=== PATIENT | male | born 1990 | race Hispanic/Latino ===

== ENCOUNTER 2016-10-12 17:00 | Emergency (ER) | payer OTHER ==
[2016-10-12 17:22] VITALS: O2SAT 99
[2016-10-12] MEDS ORDERED: Sodium Chloride 0.9% 1,000 ML IV STA (17:37)
[2016-10-12 18:08] LABS: BASO # 0.1 K/uL (0.0-0.2); BASO % 0.8 % (0.0-2.0); EOS # 0.1 K/uL (0.0-0.7); EOS % 1.1 % (0.0-4.0); HEMATOCRIT 48.6 % (35.0-51.0); LYMPH # 2.7 K/uL (1.0-4.3); LYMPH % 32.2 % (20.0-40.0); MEAN CELL VOLUME 86.2 fl (80.0-94.0); MEAN CORPUSCULAR HEMOGLOBIN 29.5 pg (27.0-31.0); MEAN CORPUSCULAR HGB CONC 34.3 g/dL (33.0-37.0); MEAN PLATELET VOLUME 8.8 fl (7.2-11.7); MONO # 0.5 K/uL (0.0-0.8); MONO % 6.3 % (0.0-10.0); NEUT # 5.1 K/uL (1.8-7.0); NEUT % 59.6 % (50.0-75.0); NRBC % 0.1 % (0.0-0.0); RED CELL DISTRIBUTION WIDTH 13.4 % (11.5-14.5); WHITE BLOOD COUNT 8.5 K/uL (4.8-10.8)
[2016-10-12 18:12] LABS: RBC URINE 1 /hpf (0-3); URINE BACTERIA RARE (<OCC); URINE BILIRUBIN NEGATIVE (NEGATIVE); URINE BLOOD NEGATIVE (NEGATIVE); URINE COLOR YELLOW (YELLOW); URINE GLUCOSE (UA) NEG (Normal); URINE KETONE 20 mg/dL (NEGATIVE); URINE LEUKOCYTE ESTERASE NEG Leu/uL (Negative); URINE PROTEIN NEGATIVE (NEGATIVE); URINE UROBILINOGEN 0.2-1.0 mg/dL (0.2-1.0); WBC URINE < 1 /hpf (0-5)
[2016-10-12 18:20] LABS: ALB/GLOB RATIO 1.3 (1.0-2.1); ALKALINE PHOSPHATASE 104 U/L (38-126); ALT/SGPT 263 U/L (21-72); AST/SGOT 109 U/L (17-59); BILIRUBIN,TOTAL 1.8 mg/dl (0.2-1.3); BLOOD UREA NITROGEN 11 mg/dl (9-20); CALCIUM 9.5 mg/dL (8.4-10.2); CARBON DIOXIDE 19 mmol/L (22-30); CHLORIDE 105 mmol/L (98-107); GFR AFRICAN-AMERICAN > 60; GLUCOSE,RANDOM 92 mg/dL (75-110); LIPASE 132 U/L (23-300); POTASSIUM 3.7 MMOL/L (3.6-5.0); SODIUM 143 mmol/l (132-148); TOTAL PROTEIN 8.1 G/DL (6.3-8.2)
--- NOTE | 2016-10-12 18:28 | ED PDOC ---
HPI: Abdomen Time Seen by Provider: 10/12/16 17:31 Chief Complaint (Nursing): Abdominal Pain Chief Complaint (Provider): Abdominal Pain History Per: Patient History/Exam Limitations: no limitations Onset/Duration Of Symptoms: Days (x3) Outside of [place] travel?: No Current Symptoms Are (Timing): Still Present Severity: Moderate Location Of Pain/Discomfort: RUQ, RLQ Quality Of Discomfort: Unable To Describe Associated Symptoms: Nausea (mild), Constipation. denies: Fever, Vomiting, Other (no hematochezia/melena) Exacerbating Factors: Food (present mostly s/p meals) Alleviating Factors: None (prescribed cathartics w/o relief) Additional Complaint(s): Nav Weber is a 26 year old male, with a past medical history inclusive of anxiety and morbid obesity, who presents to the ED on 10/12/16 for the evaluation of moderate, right-sided abdominal pain that he has experienced x3 days. Patient reports that pain is mostly present after the ingestion of food and has been accompanied by some associated mild nausea and constipation. Denies fever, vomiting, hematochezia or melena. Has medicated with cathartics, prescribed to him by his PMD yesterday for this issue, without much improvement ; stating that he did move his bowels once but "not normally". PMD: Juany Luevano Past Medical History Reviewed: Historical Data, Nursing Documentation, Vital Signs Vital Signs: Last Vital Signs Temp 98.3 F 10/12/16 22:54 Pulse 79 10/12/16 22:54 Resp 16 10/12/16 22:54 BP 125/76 10/12/16 22:54 Pulse Ox 99 10/13/16 06:21 - Medical History PMH: Anxiety Other PMH: morbid obesity - Surgical History Surgical History: No Surg Hx - Family History Family History: States: Unknown Family Hx - Social History Current smoker - smoking cessation education provided: No Alcohol: None Drugs: Denies - Home Medications Home Medications: Ambulatory Orders Medication Instructions Recorded Dicyclomine [Bentyl] 20 mg PO Q12 PRN #20 tab 10/12/16 - Allergies Allergies/Adverse Reactions: Allergies Allergy/AdvReac Type Severity Reaction Status Date / Time amoxicillin Allergy RASH Verified 10/12/16 17:18 Review of Systems ROS Statement: Except As Marked, All Systems Reviewed And Found Negative Constitutional: Negative for: Fever Gastrointestinal: Positive for: Nausea (mild), Abdominal Pain (right-sided), Constipation. Negative for: Vomiting, Melena, Hematochezia Physical Exam - Reviewed Nursing Documentation Reviewed: Yes Vital Signs Reviewed: Yes - Physical Exam Appears: Positive for: Non-toxic, No Acute Distress Head Exam: Positive for: ATRAUMATIC, NORMOCEPHALIC Skin: Positive for: Normal Color, Warm, Dry Cardiovascular/Chest: Positive for: Regular Rate, Rhythm. Negative for: Murmur Respiratory: Positive for: Normal Breath Sounds. Negative for: Respiratory Distress Gastrointestinal/Abdominal: Positive for: Soft, Tenderness (RUQ), Other ( morbidly obese) Back: Positive for: Normal Inspection Extremity: Positive for: Normal ROM. Negative for: Swelling Neurologic/Psych: Positive for: Alert, Oriented - Laboratory Results Result Diagrams: 10/12/16 17:50 10/12/16 17:50 - ECG O2 Sat by Pulse Oximetry: 99 (RA) Pulse Ox Interpretation: Normal Medical Decision Making Medical Decision Makin:31 Initial Impression: abdominal pain Medications have been reviewed (propranolol, dulcolax). Given body habitus will get CT to evaluate biliary tree. Less likely appendicitis but will also rule out. Initial Plan: * CT A/P w/IV contrast * Labs * Lipase * Urinalysis * IV NS 1000ml at 1000mls/hr * Pepcid 20mg IV * Zofran 4mg IV * Reevaluation 19:00 Patient will be endorsed over to Jose Francisco Castaneda MD, pending remainder of ED workup, reevaluation and final disposition. Scribe Attestation: Documented by Cynthia Osorio, acting as a scribe for Jesus Jessica III, DO. Provider Scribe Attestation: All medical record entries made by the Scribe were at my direction and personally dictated by me. I have reviewed the chart and agree that the record accurately reflects my personal performance of the history, physical exam, medical decision making, and the department course for this patient. I have also personally directed, reviewed, and agree with the discharge instructions and disposition. Disposition - Clinical Impression Clinical Impression: Abdominal pain - Patient ED Disposition Is Patient to be Admitted: Transfer of Care - Disposition Referrals: Jim Duarn MD [Staff Provider] - Disposition: Transfer of Care Disposition Time: 19:00 Condition: STABLE Additional Instructions: Please follow up with your doctor in 1-2 days for possible GI referral Prescriptions: Dicyclomine [Bentyl] 20 mg PO Q12 PRN #20 tab PRN Reason: abdominal pain Instructions: Abdominal Pain (ED)
[2016-10-12] MEDS ORDERED: Iohexol 300 100 ML IJ ONE (18:32)
[2016-10-12] MEDS ORDERED: Sodium Chloride 0.9% 50 ML IV ONE (18:32)
--- NOTE | 2016-10-12 19:12 | CT ---
EXAM: CT Abdomen and Pelvis With Intravenous Contrast CLINICAL HISTORY: 26 years old, male; Pain; Abdominal pain; Localized; Right; Additional info: Ruq and rlq pain, constipation TECHNIQUE: Axial computed tomography images of the abdomen and pelvis with intravenous contrast. This CT exam was performed using one or more of the following dose reduction techniques: automated exposure control, adjustment of the mA and/or kV according to patient size, and/or use of iterative reconstruction technique. Coronal and sagittal reformatted images were created and reviewed. CONTRAST: 100 mL of [id number] administered intravenously. EXAM DATE/TIME: 10/12/2016 5:38 PM COMPARISON: There are no prior studies for comparison. FINDINGS: Lower thorax: Heart size is normal. Lung bases are clear. There is a small hiatal hernia. ABDOMEN: Liver: There is fatty infiltration of the liver. Gallbladder and bile ducts: unremarkable Pancreas: There is mild fatty infiltration of pancreas. Spleen: The spleen is enlarged. Adrenals: unremarkable Kidneys and ureters: unremarkable Stomach and bowel: Stomach is almost completely empty. Rotation is normal. There is no obstruction. Terminal ileum is unremarkable. Appendix is normal in size. There is minimal radiopaque material in the appendix.Colon is incompletely distended which limits evaluation. There is scattered diverticulosis Appendix: See stomach and bowel PELVIS: Bladder: unremarkable Reproductive: Seminal vesicles and prostate are unremarkable. ABDOMEN and PELVIS: Intraperitoneal space: There is no free air or free fluid. Bones/joints: There are no acute osseous abnormalities Soft tissues: There is a fat containing left inguinal hernia. There is a small fat-containing umbilical hernia. Vasculature: Vascular structures are unremarkable. Lymph nodes: There is no pathologic adenopathy. IMPRESSION: Fatty liver; mild splenomegaly; no acute solid visceral or bowel abnormality, no CT findings of appendicitis or diverticulitis
--- NOTE | 2016-10-12 19:37 | ED PDOC ---
- Laboratory Results Result Diagrams: 10/12/16 17:50 10/12/16 17:50 - ECG O2 Sat by Pulse Oximetry: 99 (RA) Pulse Ox Interpretation: Normal - CT Scan/US CT A/P w/IV Contrast Other Rad Studies (CT/US): Read By Radiologist, Radiology Report Reviewed Other Rad Interpretation: see [facility] US Abdomen, Complete Other Rad Studies (CT/US): Read By Radiologist, Radiology Report Reviewed Other Rad Interpretation: see [facility] Medical Decision Making Medical Decision Makin:00 Patient endorsed over to me by Jesus Jessica III DO, pending CT A/P, labs, reevaluation and final disposition. 19:12 CT A/P report reviewed: FINDINGS: Lower thorax: Heart size is normal. Lung bases are clear. There is a small hiatal hernia. ABDOMEN: Liver: There is fatty infiltration of the liver. Gallbladder and bile ducts: unremarkable Pancreas: There is mild fatty infiltration of pancreas. Spleen: The spleen is enlarged. Adrenals: unremarkable Kidneys and ureters: unremarkable Stomach and bowel: Stomach is almost completely empty. Rotation is normal. There is no obstruction. Terminal ileum is unremarkable. Appendix is normal in size. There is minimal radiopaque material in the appendix.Colon is incompletely distended which limits evaluation. There is scattered diverticulosis Appendix: See stomach and bowel PELVIS: Bladder: unremarkable Reproductive: Seminal vesicles and prostate are unremarkable. ABDOMEN and PELVIS: Intraperitoneal space: There is no free air or free fluid. Bones/joints: There are no acute osseous abnormalities Soft tissues: There is a fat containing left inguinal hernia. There is a small fat-containing umbilical hernia. Vasculature: Vascular structures are unremarkable. Lymph nodes: There is no pathologic adenopathy. IMPRESSION: Fatty liver; mild splenomegaly; no acute solid visceral or bowel abnormality, no CT findings of appendicitis or diverticulitis 20:13 Labs reviewed, notable mild elevation in liver function. Will order US Abdomen Complete to exclude gallbladder issues. 22:09 US report reviewed: FINDINGS: Limitations: Large amount of bowel gas limits evaluation of the upper abdomen. Liver: There is increased echogenicity to the liver. Gallbladder: Bowel gas and large habitus limit visualization of the gallbladder. Gallbladder is partially distended. There are no large shadowing stones. There is no wall thickening. Common bile duct: Common bile duct measures 4.4 mm in diameter Pancreas: Pancreas is obscured by bowel gas. Right kidney: Right kidney is unremarkable. IMPRESSION: Limited by body habitus and large amount of bowel gas in the colon fatty liver; no gallstones or ductal dilatation Patient was not tender over the gallbladder 22:27 US and lab results discussed with patient, who is already aware of the latter from previous testing. Patient states that he plans to follow up with his PMD for this issue, will also provide GI referral. Patient is medically stable and has been asymptomatic since his arrival in the ED. No further treatment required in the ED at this time, will discharge home with Rx for Bentyl. Counseling provided regarding diagnosis, Rx and importance of followup. All questions answered. There is agreement to discharge plan, return for acute worsening of symptoms. Clinicial Impression: abdominal pain Scribe Attestation: Documented by Cnythia Osorio, acting as a scribe for Jose Francisco Castaneda MD. Provider Scribe Attestation: All medical record entries made by the Scribe were at my direction and personally dictated by me. I have reviewed the chart and agree that the record accurately reflects my personal performance of the history, physical exam, medical decision making, and the department course for this patient. I have also personally directed, reviewed, and agree with the discharge instructions and disposition. Disposition - Clinical Impression Clinical Impression: Abdominal pain - POA Present On Arrival: None - Disposition Referrals: Jim Duran MD [Staff Provider] - Disposition: Routine/Home Disposition Time: 22:27 Condition: STABLE Additional Instructions: Please follow up with your doctor in 1-2 days for possible GI referral Prescriptions: Dicyclomine [Bentyl] 20 mg PO Q12 PRN #20 tab PRN Reason: abdominal pain Instructions: Abdominal Pain (ED)
--- NOTE | 2016-10-12 22:09 | US ---
EXAM: US Abdomen Limited, Right Upper Quadrant CLINICAL HISTORY: 26 years old, male; Pain; Abdominal pain; Epigastric; Additional info: Ruq pain TECHNIQUE: Real-time ultrasound of the right upper quadrant with image documentation. EXAM DATE/TIME: 10/12/2016 8:13 PM COMPARISON: CT - ABD PELVIS IV CONTRA 10/12/2016 6:46:16 PM FINDINGS: Limitations: Large amount of bowel gas limits evaluation of the upper abdomen. Liver: There is increased echogenicity to the liver. Gallbladder: Bowel gas and large habitus limit visualization of the gallbladder. Gallbladder is partially distended. There are no large shadowing stones. There is no wall thickening. Common bile duct: Common bile duct measures 4.4 mm in diameter Pancreas: Pancreas is obscured by bowel gas. Right kidney: Right kidney is unremarkable. IMPRESSION: Limited by body habitus and large amount of bowel gas in the colon fatty liver; no gallstones or ductal dilatation Patient was not tender over the gallbladder
[2016-10-12 22:55] VITALS: BP 125/76; PULSE 79; RESP 16; TEMP 98.3
== END 2016-10-12 22:55 | disposition home or self-care (01) ==
LOC: H.ER 17:00
DX: R10.9 Unspecified abdominal pain (principal); E66.01 Morbid (severe) obesity due to excess calories

== ENCOUNTER 2017-02-17 20:59 | Emergency (ER) | payer MEDICAID, OTHER ==
[2017-02-17 21:10] VITALS: RESP 16; O2SAT 98
[2017-02-17] MEDS ORDERED: Sodium Chloride 0.9% 1,000 ML IV STA (21:39)
[2017-02-17 22:11] LABS: BASO # 0.1 K/uL (0.0-0.2); BASO % 0.8 % (0.0-2.0); EOS # 0.1 K/uL (0.0-0.7); EOS % 1.4 % (0.0-4.0); HEMOGLOBIN 16.1 g/dL (12.0-18.0); MEAN CELL VOLUME 85.6 fl (80.0-94.0); MEAN CORPUSCULAR HEMOGLOBIN 29.8 pg (27.0-31.0); MEAN CORPUSCULAR HGB CONC 34.8 g/dL (33.0-37.0); MONO # 0.4 K/uL (0.0-0.8); MONO % 5.6 % (0.0-10.0); NEUT # 4.7 K/uL (1.8-7.0); NEUT % 65.2 % (50.0-75.0); NRBC % 0.1 % (0.0-0.0); RBC 5.4 Mil/uL (4.40-5.90); RED CELL DISTRIBUTION WIDTH 13.9 % (11.5-14.5); WHITE BLOOD COUNT 7.3 K/uL (4.8-10.8)
[2017-02-17 22:21] LABS: ALB/GLOB RATIO 1.6 (1.0-2.1); ALBUMIN 4.3 g/dL (3.5-5.0); ALT/SGPT 137 U/L (21-72); AST/SGOT 67 U/L (17-59); BLOOD UREA NITROGEN 10 mg/dl (9-20); CALCIUM 9.2 mg/dL (8.4-10.2); GFR AFRICAN-AMERICAN > 60; GFR NON-AFRICAN AMERICAN > 60
--- NOTE | 2017-02-17 22:45 | ED PDOC ---
HPI: Abdomen Time Seen by Provider: 02/17/17 21:16 Chief Complaint (Nursing): Abdominal Pain Chief Complaint (Provider): Right sided abdominal pain History Per: Patient History/Exam Limitations: no limitations Onset/Duration Of Symptoms: Hrs (3) Additional Complaint(s): Patient is a 26 year old male with a past medical history of anxiety presenting to the emergency department for right sided abdominal pain ongoing for three hours with associated vomiting x1. Denies constipation, diarrhea, dysuria, fever , or a history of surgeries. PCP: Dr. Endy Anne. Past Medical History Reviewed: Historical Data, Nursing Documentation, Vital Signs Vital Signs: Last Vital Signs Temp 98.3 F 02/18/17 00:35 Pulse 89 02/18/17 00:35 Resp 16 02/18/17 00:35 BP 139/73 02/18/17 00:35 Pulse Ox 98 02/18/17 00:35 - Medical History PMH: Anxiety - Surgical History Surgical History: No Surg Hx - Family History Family History: States: Unknown Family Hx - Social History Current smoker - smoking cessation education provided: Yes (less than 10 cigarettes/day) Alcohol: Social - Home Medications Home Medications: Ambulatory Orders Medication Instructions Recorded Dicyclomine [Bentyl] 20 mg PO Q12 PRN #20 tab 10/12/16 Naproxen [Naprosyn] 500 mg PO BID PRN #15 tablet 02/17/17 Nitrofurantoin Macrocrystals 100 mg PO BID #13 cap 02/17/17 [Macrobid] - Allergies Allergies/Adverse Reactions: Allergies Allergy/AdvReac Type Severity Reaction Status Date / Time amoxicillin Allergy RASH Verified 10/12/16 17:18 Review of Systems ROS Statement: Except As Marked, All Systems Reviewed And Found Negative Constitutional: Negative for: Fever Gastrointestinal: Positive for: Vomiting (x1), Abdominal Pain (right sided). Negative for: Diarrhea, Constipation Genitourinary Male: Negative for: Dysuria Psych: Positive for: Anxiety Physical Exam - Reviewed Nursing Documentation Reviewed: Yes Vital Signs Reviewed: Yes - Physical Exam Appears: Positive for: Non-toxic (morbidly obese) Head Exam: Positive for: ATRAUMATIC, NORMAL INSPECTION, NORMOCEPHALIC Skin: Positive for: Normal Color, Warm, Dry Eye Exam: Positive for: EOMI, Normal appearance, PERRL ENT: Positive for: Normal ENT Inspection Neck: Positive for: Normal, Supple Cardiovascular/Chest: Positive for: Regular Rate, Rhythm. Negative for: Murmur Respiratory: Positive for: Normal Breath Sounds. Negative for: Accessory Muscle Use, Respiratory Distress Gastrointestinal/Abdominal: Positive for: Tenderness (right upper lateral abdominal tenderness). Negative for: Normal Exam, Guarding, Rebound Back: Positive for: Normal Inspection Extremity: Positive for: Normal ROM. Negative for: Pedal Edema Neurologic/Psych: Positive for: Alert, Oriented - Laboratory Results Result Diagrams: 02/17/17 22:00 02/17/17 22:00 - ECG O2 Sat by Pulse Oximetry: 98 (RA) Pulse Ox Interpretation: Normal Medical Decision Making Medical Decision Making: Time: 21:39 Initial Impression: Kidney stones, musculoskeletal pain Initial Plan: -Abdominal and pelvic CT Scan -Urine Dipstick -Morphine 2 mg IV -Normal Saline, 1 L/hr -Zofran 4 mg IV -Urinalysis -Reevaluation Accession No. 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 no. Patient Name: SWETA CUELLAR Pt. Address: [address] [place] [address] Rec #: [id number] [place] [address]: Kendall DIANE,Theodora Poon Pt HOME Order Location: [facility] : 1990 Male Age: 26 Order #: [id number] Reason for exam: R flank pain CT Scan ABD PELVIS W/O PO OR IV CONT Exam Date: 02/17/17 This imaging exam was performed at [facility] EXAM: CT Abdomen and Pelvis Without Intravenous Contrast CLINICAL HISTORY: 26 years old, male; Pain; Abdominal pain; Flank; Right; Additional info: R flank pain TECHNIQUE: Axial computed tomography images of the abdomen and pelvis without intravenous contrast. All CT scans at this facility use one or more dose reduction techniques, viz.: automated exposure control; ma/kV adjustment per patient size (including targeted exams where dose is matched to indication; i.e. head); or iterative reconstruction technique. Coronal and sagittal reformatted images were created and reviewed. COMPARISON: CT - ABD PELVIS IV CONTRAST ONLY 10/12/2016 6:46:16 PM FINDINGS: Lower thorax: The bilateral lung bases are clear. ABDOMEN: Liver: Fatty infiltration of the liver is identified. Gallbladder and bile ducts: The gallbladder is decompressed, without calcified stones. No intra-extrahepatic biliary ductal dilation. Pancreas: Limited evaluation secondary to the lack of intravenous contrast. Spleen: No acute findings. Adrenals: No acute findings. Kidneys and ureters: No obstructing stones. No hydronephrosis. PELVIS: Bladder: No acute findings. Reproductive: No acute findings. Appendix: The appendix is of normal caliber (series 2, image 74). ABDOMEN and PELVIS: Stomach and bowel: No acute findings. Peritoneum: No acute findings. Lymph nodes: Limited evaluation without intravenous contrast. Vasculature: No aortic aneurysm. Bones: No acute fracture. IMPRESSION: No obstructive uropathy. Normal appendix. Fatty infiltration of the liver. Dictated By: Bailey Yost MD Dictated Date/Time: 02/17/172348 Signed By: Bailey Yost MD Date Signed: 2348 Transcribed By: CHRIS Transcribe Date/Time : 02/17/172348 Scribe Attestation: Documented by Linsey Bartholomew, acting as a scribe for Theodora Argueta MD. Provider Scribe Attestation: All medical record entries made by the Scribe were at my direction and personally dictated by me. I have reviewed the chart and agree that the record accurately reflects my personal performance of the history, physical exam, medical decision making, and the department course for this patient. I have also personally directed, reviewed, and agree with the discharge instructions and disposition. Disposition - Clinical Impression Clinical Impression: UTI (urinary tract infection) - Disposition Referrals: [facility] [Outside] Endy Anne [Family Provider] - Disposition: Routine/Home Disposition Time: 23:53 Condition: STABLE Prescriptions: Naproxen [Naprosyn] 500 mg PO BID PRN #15 tablet PRN Reason: Pain, Moderate (4-7) Nitrofurantoin Macrocrystals [Macrobid] 100 mg PO BID #13 cap Instructions: Urinary Tract Infection in Men (ED) Forms: [facility] (Greek)
[2017-02-17 22:59] LABS: SQUAMOUS EPITHIAL < 1 /hpf (0-5); URINE BACTERIA FEW (<OCC); URINE BILIRUBIN NEGATIVE (NEGATIVE); URINE BLOOD NEGATIVE (NEGATIVE); URINE CLARITY CLOUDY (Clear); URINE COLOR AMBER (YELLOW); URINE GLUCOSE (UA) NEG (Normal); URINE LEUKOCYTE ESTERASE NEG Leu/uL (Negative); URINE NITRATE NEGATIVE (NEGATIVE); URINE PROTEIN 30 mg/dL (NEGATIVE); URINE UROBILINOGEN 0.2-1.0 mg/dL (0.2-1.0)
--- NOTE | 2017-02-17 23:50 | CT ---
EXAM: CT Abdomen and Pelvis Without Intravenous Contrast CLINICAL HISTORY: 26 years old, male; Pain; Abdominal pain; Flank; Right; Additional info: R flank pain TECHNIQUE: Axial computed tomography images of the abdomen and pelvis without intravenous contrast. All CT scans at this facility use one or more dose reduction techniques, viz.: automated exposure control; ma/kV adjustment per patient size (including targeted exams where dose is matched to indication; i.e. head); or iterative reconstruction technique. Coronal and sagittal reformatted images were created and reviewed. COMPARISON: CT - ABD PELVIS IV CONTRAST ONLY 10/12/2016 6:46:16 PM FINDINGS: Lower thorax: The bilateral lung bases are clear. ABDOMEN: Liver: Fatty infiltration of the liver is identified. Gallbladder and bile ducts: The gallbladder is decompressed, without calcified stones. No intra-extrahepatic biliary ductal dilation. Pancreas: Limited evaluation secondary to the lack of intravenous contrast. Spleen: No acute findings. Adrenals: No acute findings. Kidneys and ureters: No obstructing stones. No hydronephrosis. PELVIS: Bladder: No acute findings. Reproductive: No acute findings. Appendix: The appendix is of normal caliber (series 2, image 74). ABDOMEN and PELVIS: Stomach and bowel: No acute findings. Peritoneum: No acute findings. Lymph nodes: Limited evaluation without intravenous contrast. Vasculature: No aortic aneurysm. Bones: No acute fracture. IMPRESSION: No obstructive uropathy. Normal appendix. Fatty infiltration of the liver.
[2017-02-18 00:48] VITALS: BP 139/73; PULSE 89; TEMP 98.3
== END 2017-02-18 00:35 | disposition home or self-care (01) ==
LOC: H.ER 20:59
DX: N39.0 Urinary tract infection, site not specified (principal); K76.0 Fatty (change of) liver, not elsewhere classified; F41.9 Anxiety disorder, unspecified; F17.210 Nicotine dependence, cigarettes, uncomplicated

== ENCOUNTER 2017-11-07 18:53 | Emergency (ER) | payer MEDICAID ==
[2017-11-07 19:06] VITALS: O2SAT 100
[2017-11-07] MEDS ORDERED: Sodium Chloride 0.9% 1,000 ML IV STA (19:54)
--- NOTE | 2017-11-07 20:13 | ED PDOC ---
HPI: Abdomen Time Seen by Provider: 11/07/17 19:00 Chief Complaint (Nursing): Abdominal Pain Chief Complaint (Provider): Abdominal Pain History Per: Patient History/Exam Limitations: no limitations Onset/Duration Of Symptoms: Mins (x30) Current Symptoms Are (Timing): Still Present Context: Food Location Of Pain/Discomfort: Epigastric, Suprapubic Associated Symptoms: Vomiting. denies: Diarrhea, Constipation Additional Complaint(s): 27 year old male presents to the emergency department with an acute onset of upper and lower abdominal pain status post eating raw fish half an hour prior to arrival. He had 1 episode of vomiting but denies any diarrhea or constipation. PMD: Endy Anne MD Past Medical History Reviewed: Historical Data, Nursing Documentation, Vital Signs Vital Signs: Last Vital Signs Temp 98.4 F 11/07/17 21:34 Pulse 74 11/08/17 01:23 Resp 18 11/08/17 01:23 BP 131/85 11/08/17 01:23 Pulse Ox 100 11/08/17 01:32 - Medical History PMH: Anxiety - Family History Family History: States: Unknown Family Hx - Home Medications Home Medications: Ambulatory Orders Medication Instructions Recorded Dicyclomine [Bentyl] 20 mg PO Q12 PRN #20 tab 10/12/16 Naproxen [Naprosyn] 500 mg PO BID PRN #15 tablet 02/17/17 Nitrofurantoin Macrocrystals 100 mg PO BID #13 cap 02/17/17 [Macrobid] Dicyclomine [Dicyclomine HCl] 10 mg PO TID PRN #6 cap 11/08/17 Ondansetron [Zofran] 4 mg PO Q6H PRN #4 tab 11/08/17 - Allergies Allergies/Adverse Reactions: Allergies Allergy/AdvReac Type Severity Reaction Status Date / Time amoxicillin Allergy RASH Verified 11/07/17 19:40 Review of Systems ROS Statement: Except As Marked, All Systems Reviewed And Found Negative Gastrointestinal: Positive for: Vomiting, Abdominal Pain (upper and lower). Negative for: Diarrhea, Constipation Physical Exam - Reviewed Nursing Documentation Reviewed: Yes Vital Signs Reviewed: Yes - Physical Exam Appears: Positive for: No Acute Distress Head Exam: Positive for: ATRAUMATIC, NORMAL INSPECTION, NORMOCEPHALIC Skin: Positive for: Normal Color Eye Exam: Positive for: Normal appearance ENT: Positive for: Normal ENT Inspection Neck: Positive for: Normal Cardiovascular/Chest: Positive for: Regular Rate, Rhythm Respiratory: Positive for: Normal Breath Sounds. Negative for: Wheezing, Respiratory Distress Gastrointestinal/Abdominal: Positive for: Soft, Tenderness (suprapubic and epigastric mildly), Other (obese). Negative for: Mass, Guarding, Rebound Back: Positive for: Normal Inspection Extremity: Positive for: Normal ROM (upper/lower) Neurologic/Psych: Positive for: Alert, Oriented. Negative for: Motor/Sensory Deficits - Laboratory Results Result Diagrams: 11/07/17 19:51 11/07/17 19:51 - ECG O2 Sat by Pulse Oximetry: 100 (RA) Pulse Ox Interpretation: Normal Medical Decision Making Medical Decision Making: Initial Impression: Abdominal pain R/O UTI and gastroenteritis Initial Plan: * CMP * CBC * NS 1,000ml IV per 999mls/hr * Pepcid 20mg IVP * Toradol 30mg IV * Zofran 4mg PO * Urine C&S * UA Time: 2143 --Patient continues to report abdominal pain. --CT ABD/pelvis with IV and PO contrast, Bentyl 10mg and Omnipaque 50ml ordered. 0050 CT FINDINGS: Lung bases: No acute findings. ABDOMEN: Liver: Fatty infiltration. Gallbladder and bile ducts: No calcified stones. No ductal dilation. Pancreas: No ductal dilation. No mass. Spleen: Mildly enlarged. Adrenals: No mass. Kidneys and ureters: No hydronephrosis. Stomach and bowel: Few mildly thickened loops of small bowel within midabdomen. Mild stranding within associated mesentery. No obstruction. PELVIS: Appendix: Normal caliber. No inflammation. Bladder: Collapsed bladder, limiting evaluation. Reproductive: Unremarkable as visualized. ABDOMEN and PELVIS: Intraperitoneal space: Small free fluid within pelvis. No free air. Bones/joints: No acute fracture. Soft tissues: Small LEFT inguinal hernia containing fat and fluid. Tiny umbilical hernia containing fat. Vasculature: Unremarkable. No aneurysm. Lymph nodes: No pathologically enlarged lymph nodes. IMPRESSION: 1. Enteritis, nonspecific. Consider inflammatory, infectious or ischemic etiologies. 2. Incidental/non-acute findings are described above. Patient is PO tolerant and notes improvement in symptoms. Agrees to follow up with PCP in 1-2 days. Patient is stable for discharge home with a prescription for Zofran. Scribe Attestation: Documented by Lucie Wetzel and Jacinta Narvaez, acting as a scribe for Jorge Méndez MD. Provider Scribe Attestation: All medical record entries made by the Scribe were at my direction and personally dictated by me. I have reviewed the chart and agree that the record accurately reflects my personal performance of the history, physical exam, medical decision making, and the department course for this patient. I have also personally directed, reviewed, and agree with the discharge instructions and disposition. Disposition - Clinical Impression Clinical Impression: Abdominal discomfort, Enteritis - Patient ED Disposition Is Patient to be Admitted: No Counseled Patient/Family Regarding: Studies Performed, Diagnosis, Need For Followup - Disposition Disposition: Routine/Home Disposition Time: 23:05 Condition: IMPROVED Additional Instructions: follow up with your primary doctor in 1-2 days return to the ED with any worsening or concerning symptoms Prescriptions: Dicyclomine [Dicyclomine HCl] 10 mg PO TID PRN #6 cap PRN Reason: Pain, Moderate (4-7) Ondansetron [Zofran] 4 mg PO Q6H PRN #4 tab PRN Reason: Nausea/Vomiting Instructions: Viral Gastroenteritis, Adult (DC) Forms: [employer] ([employer])
[2017-11-07 20:16] LABS: URINE BACTERIA RARE (<OCC); URINE BILIRUBIN NEGATIVE (NEGATIVE); URINE BLOOD NEGATIVE (NEGATIVE); URINE CLARITY SLIGHTY-CLOUDY (Clear); URINE COLOR YELLOW (YELLOW); URINE GLUCOSE (UA) NEG (Normal); URINE LEUKOCYTE ESTERASE NEG Leu/uL (Negative); URINE PROTEIN 30 mg/dL (NEGATIVE); URINE UROBILINOGEN 0.2-1.0 mg/dL (0.2-1.0)
[2017-11-07 20:21] LABS: BASO # 0.1 K/uL (0.0-0.2); BASO % 1.2 % (0.0-2.0); EOS % 0.6 % (0.0-4.0); HEMOGLOBIN 17.3 g/dL (12.0-18.0); LYMPH # 1.7 K/uL (1.0-4.3); LYMPH % 25.1 % (20.0-40.0); MEAN CELL VOLUME 86.2 fl (80.0-94.0); MEAN CORPUSCULAR HEMOGLOBIN 29.9 pg (27.0-31.0); MEAN CORPUSCULAR HGB CONC 34.7 g/dL (33.0-37.0); MONO # 0.3 K/uL (0.0-0.8); MONO % 4.8 % (0.0-10.0); NEUT # 4.6 K/uL (1.8-7.0); NEUT % 68.3 % (50.0-75.0); NRBC % 0.1 % (0.0-0.0); RBC 5.78 Mil/uL (4.40-5.90); RED CELL DISTRIBUTION WIDTH 13.8 % (11.5-14.5); WHITE BLOOD COUNT 6.8 K/uL (4.8-10.8)
[2017-11-07 20:32] LABS: BLOOD UREA NITROGEN 13 mg/dl (9-20); GFR AFRICAN-AMERICAN > 60; GFR NON-AFRICAN AMERICAN > 60
[2017-11-07 20:33] LABS: ALB/GLOB RATIO 1.2 (1.0-2.1); ALBUMIN 4.1 g/dL (3.5-5.0); ALT/SGPT 151 U/L (21-72); AST/SGOT 78 U/L (17-59); CALCIUM 9.3 mg/dL (8.4-10.2)
[2017-11-07 21:34] VITALS: TEMP 98.4
[2017-11-07] MEDS ORDERED: Iohexol 240 (50 ml) PO ONE (21:44)
[2017-11-07] MEDS ORDERED: Iohexol 300 100 ML IJ ONE (23:52)
[2017-11-07] MEDS ORDERED: Sodium Chloride 0.9% 100 ML ONE (23:52)
--- NOTE | 2017-11-08 00:51 | CT ---
EXAM: CT Abdomen and Pelvis With Intravenous Contrast CLINICAL HISTORY: 27 years old, male; Pain; Abdominal pain; Generalized; Additional info: Abd pain TECHNIQUE: Axial computed tomography images of the abdomen and pelvis with intravenous contrast. All CT scans at this facility use one or more dose reduction techniques, viz.: automated exposure control; ma/kV adjustment per patient size (including targeted exams where dose is matched to indication; i.e. head); or iterative reconstruction technique. Coronal and sagittal reformatted images were created and reviewed. CONTRAST: 95 mL of [id number] administered intravenously. COMPARISON: CT - ABD PELVIS W/O PO OR IV CONT 2017-02-17 22:55 FINDINGS: Lung bases: No acute findings. ABDOMEN: Liver: Fatty infiltration. Gallbladder and bile ducts: No calcified stones. No ductal dilation. Pancreas: No ductal dilation. No mass. Spleen: Mildly enlarged. Adrenals: No mass. Kidneys and ureters: No hydronephrosis. Stomach and bowel: Few mildly thickened loops of small bowel within midabdomen. Mild stranding within associated mesentery. No obstruction. PELVIS: Appendix: Normal caliber. No inflammation. Bladder: Collapsed bladder, limiting evaluation. Reproductive: Unremarkable as visualized. ABDOMEN and PELVIS: Intraperitoneal space: Small free fluid within pelvis. No free air. Bones/joints: No acute fracture. Soft tissues: Small LEFT inguinal hernia containing fat and fluid. Tiny umbilical hernia containing fat. Vasculature: Unremarkable. No aneurysm. Lymph nodes: No pathologically enlarged lymph nodes. IMPRESSION: 1. Enteritis, nonspecific. Consider inflammatory, infectious or ischemic etiologies. 2. Incidental/non-acute findings are described above.
[2017-11-08 01:41] VITALS: BP 131/85; PULSE 74; RESP 18
== END 2017-11-08 01:35 | disposition home or self-care (01) ==
LOC: H.ER 18:53
DX: R10.13 Epigastric pain (principal); K52.9 Noninfective gastroenteritis and colitis, unspecified
CPT/HCPCS: 74177; 80053; 81003; 85025; 87086; 96361; 96374; 96375; 99283; J1885; J7040; Q9966; Q9967